=== PATIENT | female | born 1985 | race Caucasian/White ===

== ENCOUNTER 2016-12-05 21:41 | Inpatient (IN) | payer MEDICAID ==
[~2016-12-05] VITALS: Ht 162.6 cm; Wt 56.7 kg
[~2016-12-05 21:41] MED LIST: CEPH500T PO; ZOFR4TAB3 SL
[2016-12-05 22:40] LABS: GLUCOSE,URINE NEG (NEG); KETONE, URINE TRACE mg/dL (NEG); URINE COLOR ORANGE (YELLW/STRAW)
[2016-12-05 22:41] LABS: BLOOD, URINE NEG (NEG); MUCUS URINE MANY /lpf (OCC); NITRITE,URINE NEG (NEG)
[2016-12-05 22:42] LABS: BACTERIA, URINE OCC /hpf; SQUAMOUS EPITHELIAL CELL URINE 3 /hpf (0-5)
[2016-12-05 22:43] LABS: COMMENT (UR) CULT NOT INDICATED; CULTURE IF INDICATED CULT NOT INDICATED
[2016-12-05] MEDS ORDERED: ZOLO50TA PO (22:46)
[2016-12-05 22:55] LABS: AMPHETAMINE, URINE NEG (NEG); BARBITURATES, URINE NEG (NEG)
[2016-12-05 23:06] LABS: COCAINE, URINE POS (NEG)
[2016-12-05] MEDS ORDERED: LACTATED RINGER'S 1000 ML INJ 1,000 ML IV SCH ×2 (23:19→23:49)
[2016-12-05] MEDS ORDERED: LACTATED RINGER'S 1000 ML INJ 1,000 ML IV ONE (23:19)
[2016-12-05] MEDS ORDERED: LACTATED RINGER'S 1000 ML INJ 1,000 ML IV PRN (23:19)
[2016-12-05] MEDS ORDERED: MINERAL OIL 10 ML VIAL TOPICAL PRN (23:30)
[2016-12-05] MEDS ORDERED: ONDANSETRON HCL 4 MG/2 ML VIAL IV PRN (23:30)
[2016-12-05] MEDS ORDERED: SODIUM CHLORID 0.9% 500 ML INJ 500 ML IV PRN (23:30)
[2016-12-05] MEDS ORDERED: CITRIC ACID-SODIUM CITRATE LIQ 30 ML UDC PO SCH (23:30)
[2016-12-05] MEDS ORDERED: LIDOCAINE HCL 1% 50 ML VIAL INFIL PRN (23:30)
[2016-12-05] MEDS ORDERED: OXYTOCIN 30 UNITS-500ML PREMIX 500 ML IV ONE (23:30)
[2016-12-05] MEDS ORDERED: LIDOCAINE HCL 1% 50 ML VIAL I-DERMAL PRN (23:30)
[2016-12-05] MEDS ORDERED: SODIUM CHLOR 0.9% 1000 ML INJ 1,000 ML IV PRN (23:39)
[2016-12-06] MEDS ORDERED: CITRIC ACID-SODIUM CITRATE LIQ 30 ML UDC PO SCH (01:00)
[2016-12-06] MEDS ORDERED: ACYC400T PO (03:34)
[2016-12-06] MEDS ORDERED: BUPR8SUB SL (03:41)
[2016-12-11 08:06] LABS: BATH SALTS (MDPV) UR NEG (NEG); ECSTASY (MDMA) UR NEG (NEG); HEROIN (6-ACETYLMORPHINE) UR NEG (NEG); K2 SPICE UR NEG (NEG); OBMETHADONE UR NEG (NEG); OXYCODONE (PERCODAN) NEG (NEG); PHENCYCLIDINE URINE NEG (NEG)
== END 2016-12-05 23:51 | disposition left against medical advice (07) | DRG 782 ==
LOC: HOBED 21:41 → H2EB 23:06
PROVIDERS: ADMIT Obstetrics & Gynecology; ATTEND Obstetrics & Gynecology
DX: O34.219 Maternal care for unspecified type scar from previous cesarean delivery (principal); Z3A.00 Weeks of gestation of pregnancy not specified
CPT/HCPCS: 80307; 81001; 99285; G0481

== ENCOUNTER 2016-12-06 00:37 | Inpatient (IN) | payer MEDICAID ==
[~2016-12-06] VITALS: Ht 162.6 cm; Wt 56.7 kg
[2016-12-06] VITALS (7 sets, daily range): BP systolic 88–149; BP diastolic 57–92; PULSE 59–98; RESP 16–18; TEMP 98.2–98.8; O2SAT 98–99
[~2016-12-06 00:37] MED LIST changes: -CEPH500T PO; -ZOFR4TAB3 SL; +ZOLO50TA PO
[2016-12-06] MEDS ORDERED: ACYC400T PO (03:34)
[2016-12-06] MEDS ORDERED: BUPR8SUB SL (03:41)
[2016-12-06 06:45] LABS: AUTOMATED NEUTROPHIL # 6.2 TH/MM3 (1.8-7.7); BASOPHIL # 0.1 TH/MM3 (0-0.2); BASOPHIL % 1.4 % (0.0-2.0); EOSINOPHIL % 0.3 % (0.0-4.0); HEMATOCRIT 33.7 % (35.0-46.0); HEMO FLAGS DIFF FINAL; LYMPH % 20.7 % (9.0-44.0); LYMPHOCYTE # 1.8 TH/MM3 (1.0-4.8); MEAN CELL VOLUME 84.7 FL (80.0-100.0); MEAN CORPUSCULAR HEMOGLOBIN 28.8 PG (27.0-34.0); MONO % 6.9 % (0.0-8.0); NEUT % 70.7 % (16.0-70.0); PLATELET COUNT 190 TH/MM3 (150-450); RED BLOOD COUNT 3.98 MIL/MM3 (4.00-5.30); RED CELL DISTRIBUTION WIDTH 13.2 % (11.6-17.2); WHITE BLOOD COUNT 8.7 TH/MM3 (4.0-11.0)
[2016-12-06 07:09] LABS: INDIRECT BILIRUBIN 0.2 MG/DL (0.0-0.8); TOTAL BILIRUBIN ADULT 0.5 MG/DL (0.2-1.0)
[2016-12-06] MEDS ORDERED: CITRIC ACID-SODIUM CITRATE LIQ 30 ML UDC PO SCH (07:30)
[2016-12-06] MEDS ORDERED: LACTATED RINGER'S 1000 ML IV ONE (07:30)
[2016-12-06] MEDS ORDERED: ceFAZolin 1,000 MG/NS 100 ML IV SCH ×2 (07:30)
[2016-12-06] MEDS ORDERED: LACTATED RINGER'S 1000 ML IV SCH (07:30)
[2016-12-06] MEDS ORDERED: OXYTOCIN 10 UNIT/ML AMP ONE (07:44)
--- NOTE | 2016-12-06 07:48 | HHI.HP ---
HPI Chief Complaint term, prior section, active herpetic lesion active addiction--polysubstance depression Date Seen: Dec 06, 2016 Time Seen: 07:41 Travel History International Travel<30 Days: No Contact w/Intl Traveler<30Days: No Known Affected Area: No History of Present Illness HPI 31 yo wf at 39 5/7 with prior section at 26 weeks and undocumented scar/ herpetic lesion arrived last night with adotpive parents stating I had told her to come in for a section. This is partly true: as she was scheduled two weeks ago when surveillance non reassuring and active lesion culture. She did not make it to L &D from my office and has not been in during the interval. She attempted subutex maintenance with our office, but did not keep appointments , take UDS or adhere to contract. She acknowledges dilaudid and cocaine Sunday am. She denies leaking, bleeding. Has mild contractions and good movement. She still has tingling on perinuem but no visible ulcer. Para: 3 : 4 Allergies-Medications (Allergen,Severity, Reaction): Coded Allergies: No Known Allergies (Verified , 02/28/16) Home Meds Reported Medications Buprenorphine 8 Mg Subl8 Mg SL BID 12/06/16 Acyclovir 400 Mg Tht486 Mg PO BID Ref 0 12/06/16 Sertraline (Zoloft)50 Mg Tab50 Mg PO DAILY #30 TAB Ref 0 12/05/16 Discontinued Scripts Cephalexin (Cephalexin)500 Mg Ono814 Mg PO Q8H #21 TAB Prov:Darnell Cotton MD 02/28/16 Ondansetron (Zofran ODT)4 Mg Tab4 Mg SL Q6H PRN (NAUSEA) #12 TAB FOR NAUSEA/VOMITING Prov:Darnell Cotton MD 02/28/16 Review of Systems ROS Limitations: Intoxication Neurologic: Weakness Physical Exam Vital Signs Date Time Temp Pulse Resp B/P Pulse Ox O2 Delivery O2 Flow Rate FiO2 12/06/16 07:13 59 111/68 12/06/16 07:12 98.2 18 Narrative Ill appearing poor dentition SKIN: Warm and dry. HEAD: Normocephalic and atraumatic. EYES: No scleral icterus. No injection or drainage. ENT: No nasal drainage noted. Mucous membranes pink. Airway patent. NECK: Supple, trachea midline. No JVD. CARDIOVASCULAR: Regular rate and rhythm without murmurs, gallops, or rubs. RESPIRATORY: Breath sounds equal bilaterally. No accessory muscle use. BREASTS: Bilateral exam showed no masses , no retractions, no nipple discharge. ABDOMEN/GI: Abdomen soft, non-tender, bowel sounds present, no rebound, no guarding term fundus 3/80/-1 intact strip category 1 EXTREMITIES: No cyanosis or edema. no thrombophleblitis track anguiano BACK: Nontender without obvious deformity. No CVA tenderness. NEUROLOGICAL: Awake and alert. Motor and sensory grossly within normal limits. Five out of 5 muscle strength in all muscle groups. Normal speech. Data Data Orders Admit To Inpatient (12/06/16 ) Code Status (12/06/16 01:38) Vital Signs (Adult) .ON ADMISSION (12/06/16 01:38) Activity Oob Ad Padmaja (12/06/16 01:38) ^ Heart (12/06/16 01:38) Urinary Catheter Management JESSE.Q8H (12/06/16 01:38) ^ Preps (12/06/16 01:38) Scd / Jeevan / Foot Pump JESSE.QSHIFT (12/06/16 01:38) ^ Ultrasound For Locatio (12/06/16 01:38) Diet Npo (12/06/16 Breakfast) Type And Screen (12/06/16 01:38) Complete Blood Count With Diff (12/06/16 01:38) Urinalysis - C+S If Indicated (12/06/16 01:38) Hepatic Functional Panel (12/06/16 01:38) Lactated Ringer's 1000 Ml Inj (Lr 1000 M (12/06/16 07:30) Lactated Ringer's 1000 Ml Inj (Lr 1000 M (12/06/16 07:30) Citric Acid-Sodium Citrate Liq (Bicitra (12/06/16 07:30) Cefazolin Inj (Ancef Inj) (12/06/16 07:30) Labs Laboratory Tests Test 12/06/16 06:30 White Blood Count 8.7 Red Blood Count 3.98 Hemoglobin 11.5 Hematocrit 33.7 Mean Corpuscular Volume 84.7 Mean Corpuscular Hemoglobin 28.8 Mean Corpuscular Hemoglobin 34.0 Concent Red Cell Distribution Width 13.2 Platelet Count 190 Mean Platelet Volume 10.8 Neutrophils (%) (Auto) 70.7 Lymphocytes (%) (Auto) 20.7 Monocytes (%) (Auto) 6.9 Eosinophils (%) (Auto) 0.3 Basophils (%) (Auto) 1.4 Neutrophils # (Auto) 6.2 Lymphocytes # (Auto) 1.8 Monocytes # (Auto) 0.6 Eosinophils # (Auto) 0.0 Basophils # (Auto) 0.1 CBC Comment DIFF FINAL Differential Comment Total Bilirubin 0.5 Direct Bilirubin 0.3 Indirect Bilirubin 0.2 Aspartate Amino Transf 19 (AST/SGOT) Alanine Aminotransferase 8 (ALT/SGPT) Alkaline Phosphatase 155 Total Protein 5.8 Albumin 2.2 Blood Type AB POSITIVE Antibody Screen NEGATIVE Assessment/Plan Assessment and Plan term, needing section in active addiction BFA will section and place Mirena in OR (did not get tubal papers and have consented on mirena) hoping for TAP block pain management may be an issue hep C+ will get case management involved Gwen Thompson MD Dec 06, 2016 07:48
[2016-12-06] MEDS ORDERED: KETOROLAC TROMETHAMINE 60 MG/2 ML (IM) VIAL IM PRN (08:00)
[2016-12-06] MEDS ORDERED: ACETAMINOPHEN 1000 MG/100 ML VIAL IV ONE ×2 (08:00→09:58)
[2016-12-06] MEDS ORDERED: SODIUM CHLORIDE 0.9% FLUSH 5 ML FLUSH IV PRN (08:00)
[2016-12-06] MEDS ORDERED: SIMETHICONE 80 MG CHEWABLE TAB PO PRN (08:00)
[2016-12-06] MEDS ORDERED: DOCUSATE SODIUM 50 MG/SENNA 8.6 MG TAB PO PRN (08:00)
[2016-12-06] MEDS ORDERED: ONDANSETRON HCL 4 MG/2 ML VIAL IV PUSH PRN (08:00)
[2016-12-06] MEDS ORDERED: OXYTOCIN 30 UNITS-500ML PREMIX 500 ML IV ONE (08:00)
[2016-12-06 08:45] LABS: BLOOD GAS BASE EXCESS -0.3 mmol/L (-2-2); BLOOD GAS O2 HGB SATURATION 26 % (90-100); CORD BLOOD GAS HCO3 25 mmol/L (21-29); CORD BLOOD GAS PCO2 54 mmHG (34-78); CORD BLOOD GAS PH 7.29 (7.14-7.42); CORD BLOOD GAS PO2 13 mmHG (3.0-40.0); DRAW SITE CORD BLOOD; STAT NO
--- NOTE | 2016-12-06 08:50 | MH ---
cc: GWEN GALLEGO DATE OF ADMISSION: 12/06/2016 Date of : 1985 CHIEF COMPLAINT: 39-5/7 week intrauterine with history of prior section at 26 weeks with unknown scar, active herpetic lesion on November 21, with area healing but still visible. Occasional contractions. SECONDARY DIAGNOSIS: 1. Polysubstance abuse most recent use this morning of both Dilaudid and cocaine IV. 2. History of depression with residential treatment in the past. 3. Hepatitis C. 4. Baby for adoption. HISTORY OF PRESENT CONDITION: The patient is a 31 year-old single white female 7, para 2-1-3-3, with LMP 03/02/16 and EDC December 07, 2016. She has been a patient of the practice with only intermittent compliance, initially seen while incarcerated at our [facility] and upon release has been to the office only intermittently. She has had a total of five visits, the first of 24 weeks, sonogram at 27 weeks, a visit at 29 weeks and ultrasound at 35 weeks, and then a visit at 37-/, when she had the active herpetic lesion and was asked to head straight to Labor and Delivery for evaluation of labor. She left the office but did not come to Labor and Delivery and shows up today two weeks later, telling the staff that I am supposed to do a for her tonight because the adopting parents are here in the hospital. The strip is a category 1, with good [id number] variability, no decelerations and a heart rate of 140s. She used this morning and is neither overly euphoric nor in withdrawal at this time. She is having only mild contractions. Her cervix is 3 cm, 80%, minus 1 station. The infant is vertex, pelvis is proven, estimated weight is about 7 pounds. She denies leaking, bleeding, nausea, vomiting, headache, blurred vision. She has had two babies vaginally and then the third baby was delivered by section at 26 weeks. She states because of Rhfnz-Iluwcctnk-Bfnyi. It is presumed that this is a vertical incision in the womb, that plus the fact that she has had recent herpetic lesion are the reasons we are proceeding with section. She did not sign tubal papers in the office, having not come in consistently enough as discussed. When she was at the shelter she did receive Subutex and I attempted to continue the Subutex 8 milligram tab, sublingually b.i.d. but she has not been in the office consistently enough to be taking this in an effective fashion. Instead she has been using an inconsistent amount of cocaine, heroin and Dilaudid, most recently being this morning. She is Hepatitis C positive. She has a history of depression, posttraumatic stress disorder. She is also supposed to be on Zoloft. Her blood type is AB positive, her hemoglobin is 12.6, her Pap smear is normal but positive for HPV. She is immune to [place] measles. Her cultures were negative. Her hemoglobin A1c is 4.7, TSH is 1.51. She is sickle cell negative. Hepatitis C angel type 1A with last BCR less than a million. Her Group B strep was negative. PHYSICAL EXAMINATION: She is an ill-appearing white female, who is fairly calm. She is afebrile with stable vital signs. LUNGS: Clear. HEART: Regular. Her fundus is term, vertex. Cervix is 380% minus 1. I can see where the herpetic lesion ulcer was on the left labia. It is no longer ulcerated, appears to be healing. EXTREMITIES: Do not show any obvious trauma, phlebitis, severe edema or varicosities. IMPRESSION: 1. Term intrauterine with history of prior section, , undocumented scar. 2. Secondary history of active herpetic lesion within the last two weeks. 3. Polysubstance use and active addition at this time. 4. Baby for adoption. PLAN: Because the baby is stable at this time and it is 11 p.m. at night with a short staff, we are going to observe Sunshine until the morning and plan a when we have a full staff and the baby is a little farther distant from the Dilaudid and crack of this morning. She will be watched for substance withdrawal tonight. She has not signed tubal consent papers, so that is not an option. We have gone over the reason for her section, risks, benefits, expectations. We will try to get her a TAP for postoperative pain management that is available through anesthesia. Gwen P. Carbiener, MD PPC/IVY /11:14 PM /8:45 AM
[2016-12-06] MEDS: SODIUM CHLORIDE 0.9% FLUSH 5 ML FLUSH IV SCH (09:00)
[2016-12-06] MEDS ORDERED: DEXAMETHASONE SOD PHOS 4 MG/ML VIAL IV ONE (09:00)
[2016-12-06] MEDS ORDERED: LACTATED RINGER'S 1,000 ML BAG IV ONE (09:00)
[2016-12-06 09:05] LABS: BLOOD, URINE NEG (NEG); COMMENT (UR) CULT NOT INDICATED; CULTURE IF INDICATED CULT NOT INDICATED; GLUCOSE,URINE NEG (NEG); KETONE, URINE 40 mg/dL (NEG); MUCUS URINE MANY /lpf (OCC); NITRITE,URINE NEG (NEG); SQUAMOUS EPITHELIAL CELL URINE 1 /hpf (0-5); URINE COLOR YELLOW (YELLW/STRAW)
[2016-12-06] MEDS ORDERED: MIDAZOLAM HCL 2 MG/2 ML VIAL ONE (09:05)
[2016-12-06] MEDS ORDERED: MIDAZOLAM HCL 5 MG/5 ML VIAL ONE (09:05)
[2016-12-06] MEDS ORDERED: MORPHINE SULFATE PF 5 MG/10 ML VIAL ONE (09:06)
[2016-12-06] MEDS ORDERED: ONDANSETRON HCL 4 MG/2 ML VIAL ONE (09:06)
[2016-12-06] MEDS ORDERED: KETOROLAC TROMETHAMINE 30 MG/ML (IVP) VIAL ONE (10:00)
[2016-12-06] MEDS ORDERED: LORazepam 2 MG/ML VIAL ONE (10:19)
[2016-12-06] MEDS ORDERED: MORPHINE SULFATE 30 MG/30 ML PCA ONE (10:35)
[2016-12-06] MEDS ORDERED: ROPIVACAINE 0.5% PF INJ 30 ML VIAL NB ONE (11:16)
[2016-12-06] MEDS ORDERED: DEXAMETHASONE SOD PHOS PF 10 MG/ML VIAL IV ONE (11:17)
[2016-12-06 12:11] LABS: BICARBONATE 24.2 MEQ/L (21.0-32.0); POTASSIUM 3.9 MEQ/L (3.5-5.1)
[2016-12-06 12:15] LABS: INDIRECT BILIRUBIN 0.3 MG/DL (0.0-0.8); TOTAL BILIRUBIN ADULT 0.5 MG/DL (0.2-1.0)
[2016-12-06] MEDS ORDERED: EPIDURAL-NALOXONE HCL 0.4 MG/ML AMP IV PRN (12:30)
[2016-12-06] MEDS ORDERED: LORazepam 2 MG/ML VIAL IV ONE (12:30)
[2016-12-06] MEDS ORDERED: MORPHINE SULFATE 30 MG/30 ML PCA IV SCH (12:30)
[2016-12-06] MEDS ORDERED: EPIDURAL-DIPHENHYDRAMINE HCL 50 MG/ML VIAL IV PUSH PRN (12:30)
[2016-12-06] MEDS ORDERED: EPIDURAL-DIPHENHYDRAMINE HCL 50 MG CAP PO PRN (12:30)
[2016-12-06] MEDS ORDERED: EPIDURAL-DO NOT ADMINISTER ANTICOAGULANTS XX PRN (12:30)
[2016-12-06] MEDS ORDERED: EPIDURAL-NO SYSTEMIC NARCOTICS XX PRN (12:30)
[2016-12-06] MEDS ORDERED: NALOXONE HCL 0.4 MG/ML AMP IV PRN (12:30)
[2016-12-06] MEDS ORDERED: LACTATED RINGER'S 1000 ML INJ 1,000 ML IV SCH (12:48)
[2016-12-06] MEDS ORDERED: PCA - TOTAL MG MORPHINE DELIVERED PER SHIFT SCH (14:00)
[2016-12-06 16:23] LABS: AMPHETAMINE, URINE NEG (NEG); BARBITURATES, URINE NEG (NEG); COCAINE, URINE POS (NEG)
[2016-12-06] MEDS ORDERED: OXYTOCIN 30 UNITS-500ML PREMIX 500 ML IV PRN (18:00)
[2016-12-07 01:58] VITALS: BP 90/55; PULSE 65; RESP 18; TEMP 98.9
[2016-12-07 04:56] VITALS: BP 89/65; PULSE 69; RESP 18; TEMP 98.9
--- NOTE | 2016-12-07 07:57 | HHI.OB ---
Subjective Post Operative Day: 1 Remarks Doing well this am with pain control. Has no symptoms of withdrawal baby in NICU and for adoption wants to wean off opioids quickly her friend bringing in subutex this pm last IV dose was 24 mg dilauidid on 12/05 Objective Vitals/I&O Vital Signs Date Time Temp Pulse Resp B/P Pulse Ox O2 Delivery O2 Flow Rate FiO2 12/07/16 04:56 98.9 69 18 89/65 12/07/16 01:58 98.9 65 18 90/55 12/06/16 22:39 18 12/06/16 20:37 98 18 88/67 12/06/16 20:37 98.4 12/06/16 17:34 16 12/06/16 17:27 16 12/06/16 15:30 16 12/06/16 12:53 83 16 113/74 12/06/16 12:53 98.8 12/06/16 10:35 105/57 12/06/16 10:35 99 12/06/16 10:35 99 12/06/16 10:35 14 12/06/16 10:20 98 12/06/16 10:20 122/69 12/06/16 10:05 149/92 Result Diagram: 12/06/16 0630 12/06/16 1107 Objective Remarks GENERAL: Well-nourished, well-developed patient. CARDIOVASCULAR: Regular rate and rhythm without murmurs, gallops, or rubs. RESPIRATORY: Breath sounds equal bilaterally. No accessory muscle use. ABDOMEN/GI: Abdomen soft, non-tender, bowel sounds present. Incision: Clean, dry and intact. Fundus: Firm, non-tender at umbilicus. GENITOURINARY: Light to moderate bleeding. EXTREMITIES: No cyanosis or edema, non-tender, without signs of DVT. Medications and IVs Current Medications Medications (Trade) Dose Ordered Sig/Pancho Route Start Time Stop Time Status Last Admin Lactated Ringer's 1,000 ml @ 150 mls/hr Q6H40M IV 12/06/16 07:30 (Lr 1000 ml Inj) 1,000 ml @ 100 mls/hr Q10H IV 12/06/16 12:48 12/07/16 08:47 12/06/16 23:10 (NS Flush) 2 ml BID IV 12/06/16 09:00 (NS Flush) 2 ml UNSCH PRN IV 12/06/16 08:00 (Mylicon Chew) 80 mg QID PRN PO 12/06/16 08:00 (Toradol Inj) 30 mg Q6H PRN IM 12/06/16 08:00 12/07/16 07:59 12/06/16 21:39 (Gisselle-Colace) 2 tab Q12H PRN PO 12/06/16 08:00 (M-M-R Ii Inj) 0.5 ml ONCE ONCE SQ 12/07/16 16:00 12/07/16 16:01 (Boostrix Inj) 0.5 ml ONCE ONCE IM 12/07/16 16:00 12/07/16 16:01 (Zofran Inj) 4 mg Q6H PRN IV PUSH 12/06/16 08:00 (Roxicodone) 10 mg Q8H PO 12/06/16 08:00 Hold (Morphine 1 Mg/ ml RANCH HAND LIVESTOCK) 30 mg UNSCH IV 12/06/16 12:30 12/06/16 17:27 RANCH HAND LIVESTOCK Dosage Infused (Pha) 1 Q8HR .XX 12/06/16 14:00 12/06/16 15:30 (Narcan Inj) 0.4 mg UNSCH PRN IV 12/06/16 12:30 Miscellaneous Information NO SYSTEMIC NARCOTICS TO BE GIVEN FO... UNSCH PRN XX 12/06/16 12:30 12/07/16 12:29 (Narcan Inj) 0.4 mg UNSCH PRN IV 12/06/16 12:30 12/07/16 12:29 (Benadryl Inj) 25 mg Q6H PRN IV PUSH 12/06/16 12:30 12/07/16 12:29 (Benadryl) 50 mg Q6H PRN PO 12/06/16 12:30 12/07/16 12:29 12/06/16 21:39 Miscellaneous Information ALL NURSING DEPARTMENTS UNSCH PRN XX 12/06/16 12:30 12/07/16 12:29 Assessment/Plan Assessment and Plan POD 1 s/p TAP and RANCH HAND LIVESTOCK and other meds for withdrawal and pain management starting oxy 40/24hours until can resume subutex and then wean starting Gwen Vyas MD Dec 07, 2016 07:57
--- NOTE | 2016-12-07 08:07 | PD.OB.DELI ---
Procedure Note Section Procedure Pre Op Diagnosis term, prior section at 26 weeks with undocumented scar opioid addiction [facility] 2 weeks ago Post Op Diagnosis: Post Op Diagnosis same, delivered Performed by Gwen Thompson Procedure: Repeat Low Transverse Sec, Other (placement of mirena) Indication for delivery: Maternal medical problems, Other (prior section with undocumented scar and recent herpetic ulcer) Informed consent obtained: For anesthesia, For procedure Confirmed correct: Patient, Procedure, Site, Time-out taken Anesthesia: Spinal, Other (TAP) Medication prior to procedure: As documented in eMAR Monitoring during procedure: Blood pressure monitoring, automotive service consultant Urinary catheter: Inserted using sterile technique, To dependent drainage Sterile preparation: Duraprep, In usual fashion, With 2% chlorexidine ( Hibiclens) Position: Supine with wedge to right side Operative Features Skin Incision: Pfannenstiel Uterine Incision: Low transverse w/knife / blunt ext Membranes Ruptured: Artificially Presentation: Occiput anterior Delivery of : Assisted : Female Status of : Viable, Cord blood, Umbilical cord Placenta delivered: Intact Medications: Antibiotics, Oxytocin Estimated blood loss: 500 Procedure tolerated: Well Maternal Condition: Stable Condition: Stable (dictated) Gwen Thompson MD Dec 07, 2016 08:07
[2016-12-07 09:00] VITALS: BP 92/66; PULSE 16; PULSE 70; RESP 16; TEMP 98.8
[2016-12-07] MEDS: SERTRALINE HCL 50 MG TAB PO SCH (10:03)
[2016-12-07] MEDS ORDERED: MEASLES, MUMPS, RUBELLA VACCINE 0.5 ML VIAL SQ ONE (16:00)
[2016-12-07] MEDS ORDERED: DIPHTH/TETANUS/ACEL PERTUSSIS (BOOSTER) 0.5 ML VIAL/PFS IM ONE (16:00)
[2016-12-07] MEDS ORDERED: LORazepam 1 MG TAB PO ONE (17:00)
[2016-12-07] MEDS: KETOROLAC TROMETHAMINE 30 MG/ML (IVP) VIAL IV PUSH SCH (17:27)
[2016-12-07] MEDS ORDERED: NICOTINE 21 MG/24 HR PATCH TD SCH (18:00)
[2016-12-07] MEDS ORDERED: diphenhydrAMINE HCL 25 MG CAP PO PRN (21:30)
[2016-12-08] MEDS: KETOROLAC TROMETHAMINE 30 MG/ML (IVP) VIAL IV PUSH SCH ×2 (01:18→06:01)
[2016-12-08 02:18] VITALS: RESP 16
[2016-12-08] MEDS: SODIUM CHLORIDE 0.9% FLUSH 5 ML FLUSH IV SCH (06:01)
--- NOTE | 2016-12-08 08:11 | HHI.OB ---
Subjective Post Operative Day: 2 Remarks sleeping soundly when I came in awoken and states quite painful all over not withdrawing on regimen wants to stop vinh and take her own subutex and hospital toradol Objective Vitals/I&O Vital Signs Date Time Temp Pulse Resp B/P Pulse Ox O2 Delivery O2 Flow Rate FiO2 12/08/16 02:18 16 12/08/16 02:18 16 12/07/16 09:00 98.8 16 16 92/66 12/07/16 09:00 70 Result Diagram: 12/06/16 0630 12/06/16 1107 Objective Remarks GENERAL: Well-nourished, well-developed patient. CARDIOVASCULAR: Regular rate and rhythm without murmurs, gallops, or rubs. RESPIRATORY: Breath sounds equal bilaterally. No accessory muscle use. ABDOMEN/GI: Abdomen soft, non-tender, bowel sounds present. Incision: Clean, dry and intact. Fundus: Firm, non-tender at umbilicus. GENITOURINARY: Light to moderate bleeding. EXTREMITIES: No cyanosis or edema, non-tender, without signs of DVT. Medications and IVs Current Medications Medications (Trade) Dose Ordered Sig/Pancho Route Start Time Stop Time Status Last Admin (Lr 1000 ml Inj) 1,000 ml @ 150 mls/hr Q6H40M IV 12/06/16 07:30 (NS Flush) 2 ml BID IV 12/06/16 09:00 12/08/16 06:01 (NS Flush) 2 ml UNSCH PRN IV 12/06/16 08:00 (Mylicon Chew) 80 mg QID PRN PO 12/06/16 08:00 (Gisselle-Colace) 2 tab Q12H PRN PO 12/06/16 08:00 (Zofran Inj) 4 mg Q6H PRN IV PUSH 12/06/16 08:00 (Roxicodone) 10 mg Q6H PO 12/07/16 08:00 12/08/16 01:34 (Zoloft) 50 mg DAILY PO 12/07/16 09:00 12/07/16 10:03 (Habitrol 21 Mg Patch.24 Hr) 1 patch DAILY TD 12/07/16 18:00 Miscellaneous Information 1 DAILY TD 12/08/16 09:00 (Benadryl) 25 mg Q6H PRN PO 12/07/16 21:30 12/08/16 01:18 Assessment/Plan Assessment and Plan Stop vinh can begin subutex today watch for mild withdrawal symptoms add gabapentin and make toradol not prn continue zoloft watch for seratonin overload must shower and take off bandage. Discharge Planning need case management and plan for discharge over weekend Gwen Thompson MD Dec 08, 2016 08:11
[2016-12-08] MEDS ORDERED: GABAPENTIN 100 MG CAP PO SCH (09:00)
[2016-12-08] MEDS ORDERED: REMOVE OLD PATCH TD SCH (09:00)
[2016-12-08 09:51] LABS: HCV RNA PCR IU/ML 6190000 IU/mL (()); HCV RNA PCR LOGIU/ML 6.79 (())
[2016-12-08] MEDS: SERTRALINE HCL 50 MG TAB PO SCH (10:12)
[2016-12-08] MEDS ORDERED: KETOROLAC TROMETHAMINE 10 MG TAB PO SCH (12:00)
[2016-12-08] MEDS ORDERED: BUPRENORPHINE 8 MG SL SCH (12:00)
[2016-12-08 23:51] LABS: HEPATITIS C RNA GENOTYPE 1a (())
--- NOTE | 2016-12-10 06:06 | MP ---
cc: MACARENA GALLEGO DATE OF : [birth year] DATE OF SURGERY: 12/06/2016 PREOPERATIVE DIAGNOSIS: Term intrauterine , polysubstance use, severe depression, hepatitis C, active herpetic lesion two weeks ago. Baby is up for adoption. POSTOPERATIVE DIAGNOSIS: Term intrauterine , polysubstance use, severe depression, hepatitis C, active herpetic lesion two weeks ago. Baby is up for adoption. PROCEDURE: Repeat low transverse segment section, placement of Mirena IUD into the intrauterine cavity at the time of . ANESTHESIA: Spinal with Duramorph followed by a TAP abdominal nerve block. SURGEON: Alex Gallego MD. INSURANCE AUDITOR: Vito Mahoney, third year medical student. FINDINGS: A living female weighing, I believe, six pounds, was delivered from MEAGHAN position with clear fluid and no nuchal cord. She was extremely hypertonic at delivery. The cord was left unclamped for 45 seconds. The posterior placenta was delivered manually intact with a three vessel cord. After the uterus was exteriorized and cleaned with a lap sponge, and prior to complete closure of the first layer, a Mirena IUD was placed into the intrauterine cavity and a long pickup was used to push the string through the cervix. These were cut to not be too long. ESTIMATED BLOOD LOSS: Average. COUNTS: Sponge, instrument, needle count correct. She tolerated the procedure fairly poorly. She was frightened, had no pain tolerance and was moaning through most, before and after, even when active procedure was not ongoing. She was counseled and advised to have a TAP procedure which was performed after the . DESCRIPTION OF PROCEDURE: The patient had been admitted the night before when she came in with the adoptive parents stating that it was time for her . She had actually been scheduled two weeks prior. She was not jeannette at that point and she did acknowledge taking 24 mg of Dilaudid IV that day and three different doses, and some cocaine. She is also smoking cigarettes and drinking much caffeine. She had been on Subutex in my office but had not made her last several visits after not coming to the hospital for her . She was counseled on the need for , the fact that she had a previous 26 week by with undocumented scar and an active herpetic lesion just two weeks prior. She was taken to the back. She was administered a spinal with Duramorph. She was prepped and draped in the usual sterile fashion in the dorsal supine position with weight off the vena cava. She had been given antibiotics 1 gram Ancef, one hour prior. She had sequential stockings on and a Casper placed. A time out was performed after she was prepped and draped, and then after assuring the maximal analgesia expected, the Pfannenstiel incision was made with a knife and carried down through to the rectus fascia with the Bovie on cutting. The rectus fascia was very thin and was taken off the attenuated rectus muscle which had a large diastasis and was very thin. The parietal peritoneum was entered sharply. A bladder flap was created off the lower uterine segment and incision was made into the intrauterine cavity, extended vertically and bluntly. The was delivered with the findings as noted above. I believe the Apgars were eight and nine. She was exceptionally hypertonic almost rigid. The cord was allowed to be pulsing for 45 seconds before it was clamped x2 and cut. A blood gas and a cord blood for typing were obtained. Then the placenta was delivered manually intact with a three vessel cord and the uterus was exteriorized and cleaned with a lap sponge. Chromics were used to close the first layer and just prior to complete closure, the IUD was placed into the intrauterine cavity and the strings cut and pushed through the cervix which was opened 3 cm. Then the closure was completed. Gloves were changed. A second closure with chromic was done and then the uterus was replaced in the peritoneal cavity. Throughout this time, she was extremely uncomfortable, frightened, and very vocal, and was given as much medicine as the CEILING INSTALLER felt comfortable with. The rectus muscle was reapproximated to minimize the diastasis and the fascia was closed. There was really no subcutaneous tissue but it was approximated with 3-0 plain and then the skin was approximated with 4-0 Vicryl on a Vipul needle. She was then kept in the OR to have a TAP procedure. Sponge, instrument, needle counts were correct. Baby went to the recovery with the dad but will be placed for adoption. MD FAITH Dorantes/IVY /12:17 PM /5:26 AM
== END 2016-12-08 14:22 | DRG 765 ==
LOC: H2EB 00:37 → H1EA 11:43
PROVIDERS: ADMIT Obstetrics & Gynecology; ATTEND Obstetrics & Gynecology
PROC: 10D00Z1 Extraction of Products of Conception, Low, Open Approach (ICD-10-PCS; principal; 2016-12-06)
PROC: 0UH97HZ Insertion of Contraceptive Device into Uterus, Via Natural or Artificial Opening (ICD-10-PCS; 2016-12-06)
PROC: 3E0T3BZ Introduction of Anesthetic Agent into Peripheral Nerves and Plexi, Percutaneous Approach (ICD-10-PCS; 2016-12-06)
DX: O34.219 Maternal care for unspecified type scar from previous cesarean delivery (principal); O98.413 Viral hepatitis complicating pregnancy, third trimester; O98.313 Other infections with a predominantly sexual mode of transmission complicating pregnancy, third trimester; O99.324 Drug use complicating childbirth; F14.10 Cocaine abuse, uncomplicated; F11.10 Opioid abuse, uncomplicated; B19.20 Unspecified viral hepatitis C without hepatic coma; A60.00 Herpesviral infection of urogenital system, unspecified; O09.33 Supervision of pregnancy with insufficient antenatal care, third trimester; O99.343 Other mental disorders complicating pregnancy, third trimester; F32.9 Major depressive disorder, single episode, unspecified; Z37.0 Single live birth; Z3A.39 39 weeks gestation of pregnancy
CPT/HCPCS: 59025; 76937; 80048; 80074; 80076; 80307; 81001; 82805; 85025; 86592; 86703; 86850; 86900; 86901; 87522; 87902; J0131; J0690; J1100; J1885; J2060; J2250; J2270; J2274; J2405; J2590; J2795; J3010; J7120; Q0163

== ENCOUNTER 2017-05-06 09:39 | Emergency (ER) | payer MEDICAID ==
[~2017-05-06] VITALS: Ht 162.6 cm; Wt 65.0 kg
[~2017-05-06 09:39] MED LIST changes: +ACYC400T PO; +BUPR8SUB SL; +NORE1TAB55 PO
[2017-05-06 09:42] VITALS: BP 110/60; PULSE 92; RESP 20; TEMP 98.8; O2SAT 97
[2017-05-06 09:56] VITALS: O2SAT 97
[2017-05-06] MEDS ORDERED: BUSP10TA PO (09:56)
[2017-05-06] MEDS ORDERED: REME45TA PO (09:56)
--- NOTE | 2017-05-06 09:58 | PD ---
HPI Chief Complaint: Abdominal Pain Time Seen by Provider: 09:50 Travel History International Travel<30 days: No Contact w/Intl Traveler<30days: No Traveled to known affect area: No History of Present Illness HPI 31-year-old female with history of hepatitis C, IV drug use in remission per her report here with complaint of abdominal pain. Patient complains of one week of intermittent right upper quadrant abdominal pain, crampy in nature. This is made worse with oral intake. She states the pain is exacerbated approximately 30-60 minutes after eating, associated with nausea. She's had some vomiting but no hematemesis, hematochezia. Patient states "this feels like my hepatitis C pain". Patient denies any urinary symptoms, but states that when she was recently incarcerated and she was told that she had a kidney stone. Also when she was incarcerated her Mirena IUD was removed, patient states they told her that it was not placed appropriately. Per EMR review, her Mirena IUD was placed intraoperatively after her in December 2016. Patient states that she bleeds for approximately 3 weeks with her menses, and is off for only 5-7 days before bleeding again. She does not know when her last "normal" was. Is not sure if she could be . Denies any vaginal discharge. PFSH Past Medical History Hx Anticoagulant Therapy: No Bipolar Disorder: Yes Depression: Yes Cardiovascular Problems: No Chemotherapy: No Cerebrovascular Accident: No Diabetes: No Diminished Hearing: No Hepatitis: Yes (c) Respiratory: No Immunizations Current: Yes Tetanus Vaccination: < 5 Years Influenza Vaccination: No ?: Unknown LMP: 03/2017 Menopausal: No : 5 Para: 3 Miscarriage: 1 : 1 Past Surgical History Section: Yes Other Surgery: Yes (SPLEEN) Social History Alcohol Use: No Tobacco Use: Yes (1PPD) Substance Use: Yes (hx IV DRUG USE, crack and Dilaudid, marijuana) Allergies-Medications (Allergen,Severity, Reaction): Uncoded Allergies: narcotics (Adverse Reaction, Severe, hx of use, 05/06/17) hx of IVDU Reported Meds & Prescriptions Reported Meds & Active Scripts Active Zoloft (Sertraline HCl) 50 Mg Tab 50 Mg PO DAILY Reported Remeron (Mirtazapine) 45 Mg Tab 45 Mg PO HS Buspirone (Buspirone HCl) 10 Mg Tab 10 Mg PO TID Review of Systems Except as stated in HPI: all other systems reviewed are Neg Physical Exam Narrative GENERAL: Well-appearing female in no acute distress SKIN: Focused skin assessment warm/dry. Old scars and track anguiano to the bilateral antecubital. There does not appear to be any fresh track anguiano. HEAD: Normocephalic. EYES: No scleral icterus. No injection or drainage. ENT: Mucous membranes pink and moist. NECK: Supple CARDIOVASCULAR: Regular rate and rhythm. No murmur appreciated. RESPIRATORY: No accessory muscle use. Clear to auscultation. Breath sounds equal bilaterally. GASTROINTESTINAL: Abdomen soft, mild right upper quadrant/right flank tenderness to palpation without rebound or guarding. MUSCULOSKELETAL: No obvious deformities. No edema. NEUROLOGICAL: Awake and alert. Normal speech. PSYCHIATRIC: Appropriate mood and affect; insight and judgment normal. Data Data Last Documented VS Vital Signs Date Time Temp Pulse Resp B/P Pulse Ox O2 Delivery O2 Flow Rate FiO2 05/06/17 09:56 97 Room Air 05/06/17 09:42 98.8 92 20 110/60 Orders Complete Blood Count With Diff (05/06/17 09:50) Comprehensive Metabolic Panel (05/06/17 09:50) Lipase (05/06/17 09:50) Urinalysis - C+S If Indicated (05/06/17 09:50) Iv Access Insert/Monitor (05/06/17 09:50) Oximetry (05/06/17 09:50) Ondansetron Inj (Zofran Inj) (05/06/17 10:00) Sodium Chloride 0.9% Flush (Ns Flush) (05/06/17 10:00) Ed Urine Pregnancytest Poc (05/06/17 09:50) Ketorolac Inj (Toradol Inj) (05/06/17 10:30) Labs Laboratory Tests Test 05/06/17 05/06/17 10:05 10:10 Urine Color YELLOW Urine Turbidity CLEAR Urine pH 6.5 Urine Specific [place] 1.029 Urine Protein 30 mg/dL Urine Glucose (UA) NEG mg/dL Urine Ketones NEG mg/dL Urine Occult Blood NEG Urine Nitrite NEG Urine Bilirubin NEG Urine Urobilinogen 2.0 MG/DL Urine Leukocyte Esterase NEG Urine RBC LESS THAN 1 /hpf Urine WBC 1 /hpf Urine Squamous Epithelial 2 /hpf Cells Urine Mucus MANY /lpf Microscopic Urinalysis Comment CULT NOT INDICATED White Blood Count 6.1 TH/MM3 Red Blood Count 4.38 MIL/MM3 Hemoglobin 13.1 GM/DL Hematocrit 39.3 % Mean Corpuscular Volume 89.8 FL Mean Corpuscular Hemoglobin 29.8 PG Mean Corpuscular Hemoglobin 33.2 % Concent Red Cell Distribution Width 14.0 % Platelet Count 314 TH/MM3 Mean Platelet Volume 8.6 FL Neutrophils (%) (Auto) 73.5 % Lymphocytes (%) (Auto) 20.6 % Monocytes (%) (Auto) 4.8 % Eosinophils (%) (Auto) 1.0 % Basophils (%) (Auto) 0.1 % Neutrophils # (Auto) 4.5 TH/MM3 Lymphocytes # (Auto) 1.3 TH/MM3 Monocytes # (Auto) 0.3 TH/MM3 Eosinophils # (Auto) 0.1 TH/MM3 Basophils # (Auto) 0.0 TH/MM3 CBC Comment DIFF FINAL Differential Comment Sodium Level 139 MEQ/L Potassium Level 3.7 MEQ/L Chloride Level 108 MEQ/L Carbon Dioxide Level 25.7 MEQ/L Anion Gap 5 MEQ/L Blood Urea Nitrogen 15 MG/DL Creatinine 0.71 MG/DL Estimat Glomerular Filtration 95 ML/MIN Rate Random Glucose 101 MG/DL Calcium Level 8.7 MG/DL Total Bilirubin 0.5 MG/DL Aspartate Amino Transf 29 U/L (AST/SGOT) Alanine Aminotransferase 28 U/L (ALT/SGPT) Alkaline Phosphatase 55 U/L Total Protein 7.2 GM/DL Albumin 3.7 GM/DL Lipase 134 U/L [facility] Medical Decision Making Medical Screen Exam Complete: Yes Emergency Medical Condition: Yes Medical Record Reviewed: Yes Differential Diagnosis 31-year-old female with history of hepatitis C, IV drug abuse reportedly in remission per patient here with one week of intermittent right upper quadrant abdominal pain with nausea and vomiting worse after oral intake. Differential includes gastritis, peptic ulcer disease, pancreatitis, hepatobiliary pathology , UTI/pyelonephritis, ureterolithiasis, , ectopic . Narrative Course Patient placed on monitor, IV established and blood obtained. Given 4 mg Zofran , 30 mg Toradol. CBC, CMP, lipase, urinalysis and urine test obtained and unremarkable. Patient felt improved and will be discharged home with antiemetics and trial of antacid for possible gastritis. Diagnosis Primary Impression: Right upper quadrant abdominal pain Additional Impression: Gastritis Qualified Code: K29.00 - Acute gastritis without hemorrhage, unspecified gastritis type Referrals: Primary Care Physician as needed Additional Instructions: Nausea medications as needed. Antacid as prescribed. Follow-up with primary care provider symptoms persist and return to the ER for the warning signs discussed. Med/Other Pt SpecificInfo: Prescription(s) given Scripts Ranitidine (Zantac)150 Mg [id number] Mg PO BID #60 TAB Ref 0 Prov:Aga Moran MD 05/06/17 Promethazine (Phenergan)25 Mg [id number] Mg PO Q6H PRN (NAUSEA OR VOMITING) #10 TAB Ref 0 Prov:Aga Moran MD 05/06/17 Disposition: 01 DISCHARGE HOME Condition: Stable Aga Moran MD May 06, 2017 09:58
[2017-05-06] MEDS ORDERED: SODIUM CHLORIDE 0.9% FLUSH 10 ML FLUSH IV FLUSH PRN (10:00)
[2017-05-06] MEDS ORDERED: ONDANSETRON HCL 4 MG/2 ML VIAL IVP ONE (10:00)
[2017-05-06 10:17] LABS: BLOOD, URINE NEG (NEG); COMMENT (UR) CULT NOT INDICATED; CULTURE IF INDICATED CULT NOT INDICATED; GLUCOSE,URINE NEG (NEG); KETONE, URINE NEG (NEG); MUCUS URINE MANY /lpf (OCC); NITRITE,URINE NEG (NEG); PH, URINE 6.5 (5.0-8.5); SQUAMOUS EPITHELIAL CELL URINE 2 /hpf (0-5); URINE COLOR YELLOW (YELLW/STRAW)
[2017-05-06 10:29] LABS: AUTOMATED NEUTROPHIL # 4.5 TH/MM3 (1.8-7.7); BASOPHIL % 0.1 % (0.0-2.0); EOSINOPHIL # 0.1 TH/MM3 (0-0.4); HEMATOCRIT 39.3 % (35.0-46.0); HEMO FLAGS DIFF FINAL; LYMPH % 20.6 % (9.0-44.0); LYMPHOCYTE # 1.3 TH/MM3 (1.0-4.8); MEAN CELL VOLUME 89.8 FL (80.0-100.0); MEAN CORPUSCULAR HEMOGLOBIN 29.8 PG (27.0-34.0); MEAN CORPUSCULAR HGB CONC 33.2 % (32.0-36.0); MONO % 4.8 % (0.0-8.0); NEUT % 73.5 % (16.0-70.0); PLATELET COUNT 314 TH/MM3 (150-450); RED BLOOD COUNT 4.38 MIL/MM3 (4.00-5.30); WHITE BLOOD COUNT 6.1 TH/MM3 (4.0-11.0)
[2017-05-06] MEDS ORDERED: KETOROLAC TROMETHAMINE 30 MG/ML (IVP) VIAL IV PUSH ONE (10:30)
[2017-05-06 10:49] LABS: ALT (GPT) 28 U/L (10-53); ANION GAP 5 MEQ/L (5-15); AST (GOT) 29 U/L (15-37); BICARBONATE 25.7 MEQ/L (21.0-32.0); BLOOD UREA NITROGEN 15 MG/DL (7-18); CHLORIDE 108 MEQ/L (98-107); GLOMERULAR FILTRATION RATE 95 ML/MIN (>89); POTASSIUM 3.7 MEQ/L (3.5-5.1); SODIUM (NA) 139 MEQ/L (136-145)
[2017-05-06 10:52] LABS: ALKALINE PHOSPHATASE 55 U/L (45-117); TOTAL BILIRUBIN ADULT 0.5 MG/DL (0.2-1.0)
[2017-05-06] MEDS ORDERED: PROM25TA10 PO (11:12)
[2017-05-06] MEDS ORDERED: ZANT150T2 PO (11:12)
[2017-05-06 11:31] VITALS: RESP 16
== END 2017-05-06 11:29 | disposition home or self-care (01) ==
LOC: NEPD 09:39
DX: R10.11 Right upper quadrant pain (principal); K29.00 Acute gastritis without bleeding; B19.20 Unspecified viral hepatitis C without hepatic coma; F17.200 Nicotine dependence, unspecified, uncomplicated
CPT/HCPCS: 80053; 81001; 83690; 84703; 85025; 96374; 96375; 99284; J1885; J2405

== ENCOUNTER 2017-06-09 11:55 | Emergency (ER) | payer SELFPAY ==
[~2017-06-09] VITALS: Ht 162.6 cm; Wt 60.0 kg
[~2017-06-09 11:55] MED LIST changes: -ACYC400T PO; -BUPR8SUB SL; +BUSP10TA PO; -NORE1TAB55 PO; +PROM25TA10 PO; +REME45TA PO; +ZANT150T2 PO
[2017-06-09 11:57] VITALS: BP 130/71; PULSE 113; RESP 15; TEMP 98.4; O2SAT 99
--- NOTE | 2017-06-09 12:24 | PD ---
HPI . left buttocks "boil" Chief Complaint: Skin Problem Time Seen by Provider: 12:24 Travel History International Travel<30 days: No Contact w/Intl Traveler<30days: No Traveled to known affect area: No History of Present Illness HPI 31-year-old female who is a recovering IV drug user and has been clean for 6 months here with complaint of a boil on her buttocks for one day. Patient said all of a sudden this bump popped up and has been causing her some pain. She denies any fever or chills. She denies any drainage from the area. She has no other complaints. PFSH Past Medical History Hx Anticoagulant Therapy: No Bipolar Disorder: Yes Depression: Yes Cardiovascular Problems: No Chemotherapy: No Cerebrovascular Accident: No Diabetes: No Diminished Hearing: No Hepatitis: Yes (c) Respiratory: No Immunizations Current: Yes Menopausal: No : 5 Para: 3 Miscarriage: 1 : 1 Past Surgical History Section: Yes Other Surgery: Yes (SPLEEN) Social History Alcohol Use: No Tobacco Use: Yes (1PPD) Substance Use: Yes (hx IV DRUG USE, crack and Dilaudid, marijuana) Allergies-Medications (Allergen,Severity, Reaction): Uncoded Allergies: narcotics (Adverse Reaction, Severe, hx of use, 05/06/17) hx of IVDU Reported Meds & Prescriptions Reported Meds & Active Scripts Active Review of Systems General / Constitutional: No: Fever Eyes: No: Visual changes HENT: No: Headaches Cardiovascular: No: Chest Pain or Discomfort Respiratory: No: Shortness of Breath Gastrointestinal: No: Abdominal Pain Genitourinary: No: Dysuria Musculoskeletal: No: Pain Skin: Positive Other (left buttocks swelling), No Rash Neurologic: No: Weakness Psychiatric: No: Depression Endocrine: No: Polydipsia Hematologic/Lymphatic: No: Easy Bruising Physical Exam Narrative GENERAL: AAO x 3, no acute distress, Well-nourished, well-developed patient. SKIN: Warm and dry. No visible rashes or bruising. left buttocks with small 1 cm area of induration without any fluctuance, surrounding zone of inflammation approximately 2 cm. mild erythema, mild warm to touch, no drainable fluid collection HEAD: Normocephalic and atraumatic. EYES: No scleral icterus. No injection or drainage. ENT: No nasal drainage noted. Mucous membranes pink. Airway patent. NECK: Supple, trachea midline. No JVD. CARDIOVASCULAR: mild tachy on exam HR 104 RESPIRATORY: Breath sounds equal bilaterally. No accessory muscle use. No rhonchi or rales. GASTROINTESTINAL: visual inspection normal EXTREMITIES: No cyanosis or edema. BACK: No obvious deformity. NEURO: CN II-12 intact, PSYCH: AAO x 3, normal affect. Data Data Last Documented VS Vital Signs Date Time Temp Pulse Resp B/P (MAP) Pulse Ox O2 Delivery O2 Flow Rate FiO2 06/09/17 12:34 100 06/09/17 11:57 98.4 15 99 MDM Medical Decision Making Medical Screen Exam Complete: Yes Emergency Medical Condition: Yes Medical Record Reviewed: Yes Differential Diagnosis Left buttock cellulitis, early abscess, less likely shingles Narrative Course 31-year-old female here with what appears to be an early abscess and left buttock cellulitis. On examination she has some mild induration. There is no drainable fluid collection. I will provide her with a course of Bactrim. Her last menstrual cycle was yesterday and she denies any chance of . I've also provide her with some ibuprofen for pain. I recommend warm compresses to see if there is a head formation, and return to the emergency department for drainage if there is. Patient verbalized understanding of instructions, questions were answered, and thanked me for their care. I advised them if their condition worsens, please return to the nearest emergency room for further care. Diagnosis Primary Impression: Cellulitis of buttock, left Patient Instructions: General Instructions Additional Instructions: You can try to use warm compresses to the area to see if a head develops. If it does, you can come back to the emergency department to have it drained. [place] for worsening signs of infection which include fever, increased redness , increased warmth, purulent drainage, increased swelling or streaking. If any of these develop, please go to the nearest emergency room. Please return to emergency department if your symptoms return or worsen. Follow up with your primary care provider. Take medications as prescribed. Med/Other Pt SpecificInfo: Prescription(s) given Disposition: DISCHARGE HOME Condition: Stable Kesha Palmer Jun 09, 2017 12:24
[2017-06-09] MEDS ORDERED: IBUP800T23 PO (12:29)
[2017-06-09] MEDS ORDERED: BACT800T5 PO (12:29)
[2017-06-09 12:34] VITALS: PULSE 100
== END 2017-06-09 12:56 | disposition home or self-care (01) ==
LOC: NEPD 11:55
DX: L03.317 Cellulitis of buttock (principal); F17.200 Nicotine dependence, unspecified, uncomplicated
CPT/HCPCS: 99282

== ENCOUNTER 2017-11-07 21:39 | Emergency (ER) | payer SELFPAY ==
[2017-11-07 21:41] VITALS: BP 172/72; PULSE 84; RESP 18; TEMP 98.6; O2SAT 99
[2017-11-07] MEDS ORDERED: REME45TA PO (21:57)
[2017-11-07] MEDS ORDERED: ZOLO50TA PO (21:57)
--- NOTE | 2017-11-07 22:15 | PD ---
HPI Chief Complaint: Musculoskeletal Complaint Time Seen by Provider: 21:58 Travel History International Travel<30 days: No Contact w/Intl Traveler<30days: No Traveled to known affect area: No History of Present Illness HPI 32-year-old female presents to the emergency room for evaluation of right knee pain and swelling that started when she woke up this morning. The only injury she can think of is getting her knee caught between the seat and the door while making out with her boyfriend last night. Pain is localized to the right lateral knee without radiation. 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 It only occurs with walking. No pain at rest. Denies paresthesias or loss range of motion. Pain is minimal. She took Advil with moderate relief in symptoms. No history of knee problems. History Past Medical Histgory LMP: 1 week ago Menopausal: No Hx Chemotherapy: No Social History Alcohol Use: No Tobacco Use: Yes (1PPD) Allergies-Medications (Allergen,Severity, Reaction): Uncoded Allergies: narcotics (Adverse Reaction, Severe, hx of use, 05/06/17) hx of IVDU Reported Meds & Prescriptions Reported Meds & Active Scripts Active Reported Remeron (Mirtazapine) 45 Mg Tab 45 Mg PO HS Zoloft (Sertraline HCl) 50 Mg Tab 50 Mg PO DAILY Review of Systems Except as stated in HPI: all other systems reviewed are Neg Physical Exam Narrative GENERAL: Well-nourished, well-developed female in no acute distress. Afebrile. Ambulatory. SKIN: Focused skin assessment warm/dry. No erythema or ecchymosis. HEAD: Normocephalic. EYES: No scleral icterus. No injection or drainage. NECK: Supple, trachea midline. No JVD or lymphadenopathy. MUSCULOSKELETAL: No cyanosis. No obvious edema or effusion. 1+ dorsalis pedis pulse of the right lower extremity. Full range of motion of the knee. No bony tenderness to palpation. Negative valgus and varus stress test. Data Data Last Documented VS Vital Signs Date Time Temp Pulse Resp B/P (MAP) Pulse Ox O2 Delivery O2 Flow Rate FiO2 11/07/17 21:41 98.6 84 18 172/72 (105) 99 MDM Medical Screen Exam Complete: Yes Emergency Medical Condition: No Differential Diagnosis Knee strain Narrative Course 32-year-old female presents to the emergency room for evaluation of right knee pain that started earlier today. Patient denies any significant trauma or injury. Physical exam is unremarkable. There is no erythema, edema, ecchymosis , effusion, or bony tenderness to palpation. She is ambulatory. She has full range of motion. Right lower extremity is neurovascularly intact with 2+ dorsalis pedis pulse. No instability. No indication for imaging. Told to take ibuprofen for pain and follow up with her primary care physician for outpatient imaging if symptoms persist. There are no urgent or emergent medical conditions this time. A medical screening exam was performed: At the time of evaluation the presenting medical condition was determined not to be of an emergent nature. The patient was given the option of receiving additional care, but declined. Patient was given options for additional community resources from which to obtain care. The Patient Has Been advised to seek medical attention for their presenting complaint. The patient has been advised to return to the ER at any time if an emergent condition develops. Primary Impression: Encounter for medical screening examination Disposition: 01 DISCHARGE HOME Condition: Stable Tania Rocha Nov 07, 2017 22:15
== END 2017-11-07 22:30 | disposition left against medical advice (07) ==
LOC: NEPC 21:39
DX: M25.461 Effusion, right knee (principal)
CPT/HCPCS: 99281

== ENCOUNTER 2018-01-22 11:38 | Emergency (ER) | payer SELFPAY ==
[~2018-01-22] VITALS: Ht 162.6 cm; Wt 57.7 kg
[~2018-01-22 11:38] MED LIST changes: -BUSP10TA PO; -PROM25TA10 PO; -ZANT150T2 PO
[2018-01-22 11:43] VITALS: BP 117/57; PULSE 82; RESP 18; TEMP 98.3; O2SAT 100
[2018-01-22] MEDS ORDERED: AMOX875T PO (12:08)
[2018-01-22] MEDS ORDERED: FLUT1SPR5 EACH NARE (12:08)
--- NOTE | 2018-01-22 12:19 | PD ---
HPI Chief Complaint: Cold / Flu Symptoms Time Seen by Provider: 12:01 Travel History International Travel<30 days: No Contact w/Intl Traveler<30days: No Traveled to known affect area: No History of Present Illness HPI 32 y/o female presents emergency department with several day history of upper respiratory symptoms, including chills, headache, sinus congestion, postnasal drip, cough, sore throat, and posttussive emesis especially at night. Patient denies ear pain or significant wheezing. Patient denies nausea or abdominal pain. No urinary symptoms, diarrhea, or vaginal symptoms. She has generalized malaise and myalgias. She not take narcotics. PFSH Past Medical History Hx Anticoagulant Therapy: No Bipolar Disorder: Yes Depression: Yes Cardiovascular Problems: No Chemotherapy: No Cerebrovascular Accident: No Diabetes: No Diminished Hearing: No Hepatitis: Yes (c) Respiratory: No Immunizations Current: Yes ?: Not LMP: on now Menopausal: No : 6 Para: 4 Miscarriage: 1 : 1 Past Surgical History Section: Yes (x2) Other Surgery: Yes (SPLEEN) Social History Alcohol Use: No Tobacco Use: Yes (1PPD) Substance Use: No (hx IV DRUG USE, crack and Dilaudid, marijuana) Allergies-Medications (Allergen,Severity, Reaction): Uncoded Allergies: narcotics (Adverse Reaction, Severe, hx of use, 05/06/17) hx of IVDU Reported Meds & Prescriptions Reported Meds & Active Scripts Active Flonase Nasal [place] (Fluticasone Nasal [place]) 50 Mcg/Act [place] 100 Mcg EACH NARE BID Amoxicillin 875 Mg Tab 875 Mg PO BID 10 Days Reported Remeron (Mirtazapine) 45 Mg Tab 45 Mg PO HS Zoloft (Sertraline HCl) 50 Mg Tab 50 Mg PO DAILY Review of Systems Except as stated in HPI: all other systems reviewed are Neg General / Constitutional: Positive: Fever Eyes: No: Visual changes HENT: Positive: Headaches, Sore Throat, Rhinitis, Rhinorrhea, Congestion, No: Vertigo, Lightheadedness, Nosebleed, Neck Stiffness, Neck Pain, Dental Difficulties, Earache Cardiovascular: No: Chest Pain or Discomfort Respiratory: Positive: Cough, Other (Posttussive emesis), No: Shortness of Breath, Wheezing, Sneezing, Orthopnea, Hemoptysis, Night Sweats, Pleuritic Pain Gastrointestinal: Positive: Loss of Appetite, No: Nausea, Vomiting, Diarrhea, Abdominal Pain Genitourinary: No: Dysuria Musculoskeletal: Positive: Myalgias, No: Pain Skin: No Rash Neurologic: No: Weakness Psychiatric: No: Depression Endocrine: No: Polydipsia Hematologic/Lymphatic: No: Easy Bruising Physical Exam Narrative GENERAL: Patient appears ill but not septic SKIN: Warm and dry. Normal color. Normal turgor. No diaphoresis HEAD: Atraumatic. Normocephalic. Moderate sinus tenderness to both frontal and maxillary sinuses more on the right than the left EYES: Pupils equal and round. No scleral icterus. No injection or drainage. ENT: No nasal bleeding or discharge. Mucous membranes pink and moist. TMs are dull bilaterally without injection. Posterior pharynx is injected with cobblestoning and postnasal drip noticed. Tonsils are not significantly swollen without exudate. Airways patent. NECK: Trachea midline. Supple without significant lymphadenopathy CARDIOVASCULAR: Regular rate and rhythm. RESPIRATORY: No accessory muscle use. Clear to auscultation. Breath sounds equal bilaterally. GASTROINTESTINAL: Abdomen soft, non-tender, nondistended. Hepatic and splenic margins not palpable. MUSCULOSKELETAL: Extremities without clubbing, cyanosis, or edema. No obvious deformities. NEUROLOGICAL: Awake and alert. No obvious cranial nerve deficits. Motor grossly within normal limits. Five out of 5 muscle strength in the arms and legs. Normal speech. PSYCHIATRIC: Appropriate mood and affect; insight and judgment normal. Data Data Last Documented VS Vital Signs Date Time Temp Pulse Resp B/P (MAP) Pulse Ox O2 Delivery O2 Flow Rate FiO2 01/22/18 11:43 98.3 82 18 117/57 (77) 100 [facility] Medical Decision Making Medical Screen Exam Complete: Yes Emergency Medical Condition: Yes Differential Diagnosis Upper respiratory infection. Influenza. Sinusitis. Postnasal drip. Cough. Narrative Course Patient will be treated with amoxicillin 875 twice daily 10 days. Patient also given Flonase nasal spray 2 sprays each nostril daily. Patient is to take cough medicine of choice [id number] as needed. Patient is encouraged to quit smoking. Work note was given for today and tomorrow. Follow-up if symptoms worsen. Diagnosis Primary Impression: Acute non-recurrent pansinusitis Patient Instructions: General Instructions, Sinusitis (ED) Departure Forms: Work Release Enter return to work date: Jan 24, 2018 Additional Instructions: Patient will be treated with amoxicillin 875 twice daily 10 days. Patient also given Flonase nasal spray 2 sprays each nostril daily. Patient is to take cough medicine of choice [id number] as needed. Patient is encouraged to quit smoking. Work note was given for today and tomorrow. Follow-up if symptoms worsen. Scripts Fluticasone Nasal [place] (Flonase Nasal [place]) 50 Mcg/Act [place] 100 MCG EACH NARE BID for Allergies, #1 BOTTLE 0 Refills Prov: Dejuan Dickson MD 01/22/18 Amoxicillin (Amoxicillin) 875 Mg Tab 875 MG PO BID for Infection for 10 Days, #20 TAB 0 Refills Prov: Dejuan Dickson MD 01/22/18 Disposition: 01 DISCHARGE HOME Condition: Stable Rony Contreras Jan 22, 2018 12:19
== END 2018-01-22 12:31 | disposition home or self-care (01) ==
LOC: NEPK 11:38
DX: J01.40 Acute pansinusitis, unspecified (principal); F17.200 Nicotine dependence, unspecified, uncomplicated; F31.9 Bipolar disorder, unspecified
CPT/HCPCS: 99283